=== PATIENT | female | born 1985 | race Caucasian/White ===

== ENCOUNTER → 2020-08-06 | Outpatient (CLI) | payer OTHER | LOC: KOH-I 13:13 | DX: E04.9 Nontoxic goiter, unspecified (principal); E04.1 Nontoxic single thyroid nodule | CPT/HCPCS: 76536 ==

== ENCOUNTER 2021-09-14 12:45 | Emergency (ER) | payer OTHER ==
[2021-09-14 14:08] LABS: HEMOGLOBIN 11.7 gm/dl (12.3-15.3); RED BLOOD COUNT 4.63 M/UL (4.00-5.10); WHITE BLOOD COUNT 6.9 K/UL (4.5-11.0)
[2021-09-14 14:48] LABS: BUN/CREATININE RATIO 11 (0-10)
== END 2021-09-14 16:25 | disposition home or self-care (01) ==
LOC: ER1 12:45
PROVIDERS: Physician Assistant
DX: R51.9 Headache, unspecified (principal); R42 Dizziness and giddiness; R20.2 Paresthesia of skin; Z88.0 Allergy status to penicillin
CPT/HCPCS: 70450; 80053; 82550; 82553; 84439; 84443; 84484; 85025; 93005; 99284